=== PATIENT | female | born 1940 | race Caucasian/White ===

== ENCOUNTER 2019-03-21 08:42 | Emergency (ER) | payer MEDICARE, OTHER ==
[2019-03-21] MEDS ORDERED: cefTRIAXone 1 GM in SODIUM CHLORIDE 0.9% MINIBAG 100 ML IV STA (09:03)
[2019-03-21] MEDS ORDERED: AZITHROMYCIN INJ 500 MG in SODIUM CHLORIDE 0.9% 250 ML IV STA (09:03)
[2019-03-21 09:04] LABS: BASOPHILS % (AUTO) 0.6 %; HGB - HEMOGLOBIN 12.1 g/dL (12.0-16.0); LYMPHOCYTES # (AUTO) 1.9 10^3/uL (1.5-3.5); LYMPHOCYTES % (AUTO) 26.6 %; MEAN CORPUSCULAR HEMOGLOBIN 29.8 pg (27.0-31.0); MEAN CORPUSCULAR HGB CONC 30.1 g/dL (32.0-36.0); MEAN PLATELET VOLUME 9.5 fL (7.9-10.8); MONOCYTES # (AUTO) 0.9 10^3/uL (0.0-1.0); MONOCYTES % (AUTO) 12.2 %; NEUTROPHILS # (AUTO) 4.3 10^3/uL (1.5-6.6); NEUTROPHILS % (AUTO) 59.1 %; PLT - PLATELET COUNT 457 10^3/uL (130-450); RED BLOOD COUNT 4.06 10^6/uL (4.20-5.40); RED CELL DISTRIBUTION WIDTH 17.2 % (12.0-15.0); WHITE BLOOD COUNT 7.2 x10^3/uL (4.8-10.8)
--- NOTE | 2019-03-21 09:07 | ED Physician Documentation ---
History of Present Illness - Stated complaint Stated Complaint: SOA - Chief complaint Chief Complaint: Resp - Additonal information Additional information: This is an 78-year-old female denies past medical history who presents with shortness of breath. For the last week patient has had a cough, and shortness of breath when she walks. She is also had some swelling of her lower extremities. She did have an episode earlier in the week where she got nauseated and diaphoretic according to family was in the room. This past and patient did not come into the hospital. She this morning began having worsening shortness of breath, she also states that she has had some intermittent subjective fevers at home, and she is been coughing up thick white to pink sputum. She is concerned she might have a pneumonia. Her daughter brought her to the hospital in triage she was noted to have an oxygen sat of 44% on room air. She denies any Chest pain, denies cardiac history, no history of RI. She is a former smoker. She denies any history of blood clots. 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 HEENT: Tonsil/Adenoidectomy - Present Medications Home Medications: Ambulatory Orders Medication Instructions Recorded Confirmed No Known Home Medications 04/11/13 04/11/13 - Allergies Allergies/Adverse Reactions: Allergies Allergy/AdvReac Type Severity Reaction Status Date / Time No Known Drug Allergies Allergy Verified 04/11/13 23:57 - Living Situation Living Arrangement: reports: At home - Social History Does the pt smoke?: No Smoking Status: Former smoker Does the pt drink ETOH?: Yes Does the pt have substance abuse?: No - POLST Patient has POLST: No PD ED PE NORMAL - Vitals Vital signs reviewed: Yes - General General: Alert and oriented X 3, Other (Nonrebreather in place, patient Has incr eased work of breathing, but is able to speak in full sentences) - HEENT HEENT: PERRL - Neck Neck: Supple, no meningeal sign - Cardiac Cardiac: Other (Regular rate and rhythm) - Respiratory Respiratory: Other (Diffuse crackles, particularly on the right side. 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, No motor deficit, Normal speech - Psych Psych: Normal mood, Normal affect Results - Vitals Vitals: Vital Signs - 24 hr 03/21/19 03/21/19 03/21/19 08:53 09:04 09:05 Temperature 37.7 C H Heart Rate 95 90 92 Respiratory 24 27 H Rate Blood Pressure 228/104 H 213/91 H O2 Saturation 44 L 95 03/21/19 03/21/19 03/21/19 09:43 10:00 10:58 Temperature Heart Rate 90 82 80 Respiratory 30 H 24 26 H Rate Blood Pressure 194/76 H 191/86 H 186/87 H O2 Saturation 97 98 96 03/21/19 03/21/19 03/21/19 11:00 11:30 12:00 Temperature Heart Rate 85 91 89 Respiratory 19 22 27 H Rate Blood Pressure 186/88 H 184/102 H 191/86 H O2 Saturation 95 97 96 03/21/19 03/21/19 03/21/19 12:30 12:36 13:00 Temperature Heart Rate 89 87 94 Respiratory 25 H 35 H 24 Rate Blood Pressure 186/95 H 186/95 H 200/106 H O2 Saturation 95 95 95 03/21/19 03/21/19 03/21/19 13:19 13:30 14:00 Temperature 37.6 C H Heart Rate 104 H 95 88 Respiratory 24 22 Rate Blood Pressure 206/111 H 180/126 H O2 Saturation 97 96 Oxygen O2 Source BIPAP Oxygen Flow Rate 15 - EKG (time done) 8:48 Other comments: Other comments (Rate 101, rhythm sinus tachycardia. There is poor R wave progression. There is [address] elevation in V2 and V3, otherwise no ST elevation. There is Some baseline wander that obscures fine detailed evaluation.) 10:53 Other comments: Other comments (Rate 82, rhythm sinus, there is [address] elevation in V2, 0.[address] elevation in V3, no ST depression seen. There is some T wave flattening in aVL. Pattern is unchanged from prior. There is poor R wave progression) - Labs Labs: Laboratory Tests 03/21/19 03/21/19 03/21/19 08:55 08:55 08:55 WBC 7.2 RBC 4.06 L Hgb 12.1 Hct 40.2 MCV 99.0 MCH 29.8 MCHC 30.1 L RDW 17.2 H Plt Count 457 H MPV 9.5 Neut # (Auto) 4.3 Lymph # (Auto) 1.9 Towner # (Auto) 0.9 Eos # (Auto) 0.0 Baso # (Auto) 0.0 Absolute Nucleated RBC 0.07 Nucleated RBC % 1.0 VBG pH VBG pCO2 VBG pO2 VBG HCO3 VBG Total CO2 VBG O2 Saturation VBG Base Excess Sodium 140 Potassium 3.4 L Chloride 100 L Carbon Dioxide 30 Anion Gap 10.0 BUN 10 Creatinine 0.8 Estimated GFR (MDRD) 69 L Glucose 136 H Lactic Acid 2.8 H Calcium 9.1 Total Bilirubin 0.8 AST 34 ALT 31 Alkaline Phosphatase 105 Troponin I High Sens B-Natriuretic Peptide Total Protein 7.3 Albumin 3.8 Globulin 3.5 Albumin/Globulin Ratio 1.1 Lipase 37 03/21/19 03/21/19 03/21/19 08:55 08:55 08:55 WBC RBC Hgb Hct MCV MCH MCHC RDW Plt Count MPV Neut # (Auto) Lymph # (Auto) Towner # (Auto) Eos # (Auto) Baso # (Auto) Absolute Nucleated RBC Nucleated RBC % VBG pH 7.314 VBG pCO2 55.2 H VBG pO2 38.0 VBG HCO3 27.4 VBG Total CO2 29.1 H VBG O2 Saturation 63.8 VBG Base Excess 0.3 Sodium Potassium Chloride Carbon Dioxide Anion Gap BUN Creatinine Estimated GFR (MDRD) Glucose Lactic Acid Calcium Total Bilirubin AST ALT Alkaline Phosphatase Troponin I High Sens 186.8 H* B-Natriuretic Peptide 432 H Total Protein Albumin Globulin Albumin/Globulin Ratio Lipase 03/21/19 03/21/19 09:16 11:18 WBC RBC Hgb Hct MCV MCH MCHC RDW Plt Count MPV Neut # (Auto) Lymph # (Auto) Towner # (Auto) Eos # (Auto) Baso # (Auto) Absolute Nucleated RBC Nucleated RBC % VBG pH VBG pCO2 VBG pO2 VBG HCO3 VBG Total CO2 VBG O2 Saturation VBG Base Excess Sodium Potassium Chloride Carbon Dioxide Anion Gap BUN Creatinine Estimated GFR (MDRD) Glucose Lactic Acid 1.5 Calcium Total Bilirubin AST ALT Alkaline Phosphatase Troponin I High Sens 569.0 H* B-Natriuretic Peptide Total Protein Albumin Globulin Albumin/Globulin Ratio Lipase - Rads (name of study) CXR Radiology: Prelim report reviewed (Masslike consolidation of the right lung, potentially concerning for malignancy. Pulmonary edema with bilateral pleural effusions, mild cardiomegaly) CT PE study Radiology: Other (No pulmonary embolism or sign of right heart strain, there is dense airspace consolidation which may be due to infection though subtle malignancy is not excluded. Bilateral septal thickening which may be consistent with pulmonary edema, moderate right and small left pleural effusions, small pericardial effusion) PD MEDICAL DECISION MAKING - ED course Complexity details: considered differential (Pneumonia, pulmonary edema, heart failure, ACS, dysrhythmia, electrolyte abnormality, malignancy, pulmonary embolism) ED course: On arrival patient is having significant respiratory distress. Her oxygen saturation is 47% on room air, she is tachypneic, and hypertensive. She has crackles and reduced breath sounds in the bilateral bases. She is placed on nonrebreather and oxygen saturation improved into the 90s. Bedside pointing or ultrasound reveals B-lines, as well as a suggestion of a small pericardial effusion and some opacification in the lungs. Chest x-ray also shows consolidation which are concerning for mass versus pneumonia, and also interstitial edema suggestive of pulmonary edema. She was placed on BiPAP 8/4 and had significant improvement in her work of breathing. EKG shows poor R wave progression and slight elevation of the ST segments in V2 and V3, but not at criteria for ST elevation RI, and patient additionally has no chest pain. We have no past EKG for comparison. Her CBC is relatively unremarkable with only a slight thrombocytosis, her VBG shows mild hypercapnia at 55, and her electrolytes are unremarkable. She does have an elevated BNP at 432 consistent with cardiac dysfunction and her initial high-sensitivity troponin is 186. While this is elevated, it is an indeterminate range for ACS versus just heart strain. CT PE study was performed and shows no signs of pulmonary embolism, but does show consolidation the lungs which is dense and may in fact rib infection versus subtle malignancy. She is at risk for malignancy given her previous smoking history. She does have some pulmonary edema and a small pericardial effusion. She was started on ceftriaxone as well as azithromycin to cover for respiratory infection, though she is afebrile and has no elevated white count at this time. Repeat troponin is increasing at 569, repeat EKG is unchanged. She continues to be chest pain-free. I think this is most concerning for at non-ST elevation RI, given her overall clinical picture. She was given aspirin here. I consider starting heparin, however given her pericardial effusion and complicated picture I think that there are some risks in doing so and I attempted to contact cardiology at [facility] for the recommendations but after multiple pages I have still not heard back. At this time she appears to have acute hypoxemic respiratory failure, which may be multifactorial from heart failure, pneumonia, and potential malignancy. She is requiring BiPAP and when she was briefly transitioned to an Oxymizer she did not tolerate this - after around a half an hour needed to be put back on the BiPAP. Her blood pressure also increased again, and she was given nitroglycerin and started on a nitro drip with improvement, which again is most consistent with pulmonary edema. Dr. Pozo Is accepting provider at [facility]. Given she is on BiPAP she want to be transferred via air. Oxygen saturation was in the mid 90s with easy work of breathing at the time of transfer. She appears stable on BiPAP. Departure - Departure Disposition: 02 Transfer Acute Care Hosp Clinical Impression: Acute hypoxemic respiratory failure, Elevated troponin Heart failure Qualifiers: Heart failure type: unspecified Heart failure chronicity: acute Qualified Code(s): I50.9 - Heart failure, unspecified Pneumonia Qualifiers: Pneumonia type: due to unspecified organism Laterality: unspecified laterality Lung location: unspecified part of lung Qualified Code(s): J18.9 - Pneumonia, unspecified organism Discharge Date/Time: 03/21/19 14:00
[2019-03-21 09:09] LABS: VBG BASE EXCESS 0.3 mmol/L (-2 - +2); VBG PCO2 55.2 mmHg (41-51); VBG PH 7.314 (7.31-7.41); VBG TOTAL CO2 29.1 mmol/L (24-29)
--- NOTE | 2019-03-21 09:16 | XRAY Report ---
Reason: chest pain Procedure Date: 03/21/2019 Accession Number: [id number] / [id number] Procedure: XR - Chest 1 View X-Ray CPT Code: 92374 Final Report FULL RESULT: EXAM: CHEST RADIOGRAPHY EXAM DATE: 03/21/2019 09:03 AM. CLINICAL HISTORY: Chest pain. COMPARISON: None. TECHNIQUE: 1 view. FINDINGS: Lungs/Pleura: Right suprahilar masslike consolidation is seen. Coarse interstitial pulmonary opacities are noted with lower lung predominant consolidation bilaterally. Small bilateral pleural effusions are evident. No pneumothorax. Mediastinum: Heart size is mildly enlarged. Other: None. IMPRESSION: 1. Masslike consolidation of the right suprahilar lung is of unclear etiology, but malignancy is not excluded. 2. Coarse interstitial pulmonary opacities could reflect pulmonary edema or other interstitial process. 3. Small bilateral pleural effusions. 4. Mild cardiomegaly. RADIA
[2019-03-21 09:17] LABS: ALBUMIN 3.8 g/dL (3.2-5.5); ALBUMIN/GLOBULIN RATIO 1.1 (1.0-2.2); BILIRUBIN,TOTAL 0.8 mg/dL (0.2-1.0); CALCIUM 9.1 mg/dL (8.5-10.3); CREATININE 0.8 mg/dL (0.4-1.0); TOTAL PROTEIN 7.3 g/dL (6.7-8.2)
[2019-03-21] MEDS ORDERED: FUROSEMIDE 20 MG/2 ML VIAL IVP STA (09:30)
[2019-03-21] MEDS ORDERED: IOVERSOL 320 100 ML VIAL IVP ONE ×2 (09:37→10:06)
--- NOTE | 2019-03-21 10:30 | CT Report ---
Reason: PE study please, hypoxia, edema, ?lung mass Procedure Date: 03/21/2019 Accession Number: [id number] / [id number] Procedure: CT - ANGIO CHEST W/WO CPT Code: Final Report FULL RESULT: EXAM: CT ANGIOGRAM CHEST EXAM DATE: 03/21/2019 10:09 AM. CLINICAL HISTORY: PE study please, hypoxia, edema, ?lung mass. COMPARISON: CHEST 1 VIEW 03/21/2019 8:46 AM. TECHNIQUE: Routine helical imaging was performed through the chest in the pulmonary arterial phase. IV Contrast: OPTI 320 80ML. Reconstructions: Coronal 3-D MIP reconstructions.Sagittal and coronal. In accordance with CT protocol optimization, one or more of the following dose reduction techniques were utilized for this exam: automated exposure control, adjustment of mA and/or KV based on patient size, or use of iterative reconstructive technique. FINDINGS: Pulmonary Arteries: Diagnostic quality: Adequate through the segmental arteries. No evidence for acute or chronic pulmonary emboli. RV/LV is within normal limits. There is no interventricular septal bowing. There is no reflux of contrast material in the IVC. Lungs/Pleura: Moderate to severe upper lung predominant emphysema noted. Anterior right upper lobe dense airspace consolidation is seen of unclear etiology. No definite hyperenhancing suprahilar mass is seen within this consolidation and this may be secondary to pneumonia. Additional irregular shaped nodular foci of consolidation seen at the left upper lung measuring 9 mm (6/37), 13 mm (6/42), and 14 mm (6/54) respectively. Dense masslike airspace consolidation is also seen in the superior segment of the left lower lobe (09/03 37) measuring up to 3.8 cm. Also noted is nodular septal thickening in the right greater than left upper lung with appearance of reticulation. Septal thickening is also seen in the lower lungs bilaterally to a lesser extent compared to the right upper lobe. Moderate size right pleural effusion and small left pleural effusion noted. No pneumothorax. Mediastinum: Borderline cardiomegaly. Small pericardial effusion noted. Coronary artery calcifications noted. Prominent mediastinal lymph nodes are possibly reactive. For example, 1.2 cm short axis right lower paratracheal lymph node (5/58) is noted. Thoracic Aorta: Limited evaluation secondary to lack of adequate opacification. No aneurysms. Severe diffuse calcified atherosclerotic plaque seen in the thoracic aorta. Upper Abdomen: Hepatic lobular contour could reflect underlying cirrhosis. No acute abnormality seen. No ascites is evident. Other: Degenerative changes in the spine. IMPRESSION: 1. No pulmonary emboli bilaterally. No sign of right heart strain. 2. Dense airspace consolidation seen extending from the right suprahilar lung into the anterior aspect of the right upper lobe. Since no underlying hyperenhancing mass is seen within the consolidation, this could reflect infection, although, subtle malignancy is not entirely excluded. Similarly, 3.8 cm dense masslike consolidation of the superior segment of the left lower lobe with irregular borders is noted, also of unclear etiology, likely infection versus malignancy. 3. Additional Discrete left upper lobe nodularity is seen with the largest nodule measuring 14 mm as listed above. Again etiology is unclear and could reflect infection versus malignancy. 4. Bilateral septal thickening is noted is noted, most conspicuous in the right upper lobe reflecting interstitial process such as pulmonary edema, infection, or lymphangitic carcinomatosis which could have this appearance in the context of malignancy. 5. Given extent of findings, short interval follow-up imaging is recommended to assess for evolution or resolution. 6. Moderate right and small left base pleural effusion noted. 7. Small pericardial effusion. 8. Prominent mediastinal lymph nodes are seen. RADIA
[2019-03-21] MEDS ORDERED: ASPIRIN CHEW 81 MG TABLET PO STA (12:09)
[2019-03-21] MEDS ORDERED: NITROGLYCERIN SL 0.4 MG TABLET SL STA (13:39)
[2019-03-21] MEDS ORDERED: NITROGLYCERIN SL 0.4 MG TABLET SL ONE (13:40)
[2019-03-21 15:15] VITALS: BP 180/126
== END 2019-03-21 14:00 | disposition short-term general hospital (02) ==
LOC: ED 08:42
DX: J96.01 Acute respiratory failure with hypoxia (principal); I31.3 Pericardial effusion (noninflammatory); J90 Pleural effusion, not elsewhere classified; J18.9 Pneumonia, unspecified organism; I11.0 Hypertensive heart disease with heart failure; I50.1 Left ventricular failure, unspecified; R79.89 Other specified abnormal findings of blood chemistry; Z87.891 Personal history of nicotine dependence
CPT/HCPCS: 36415; 71045; 71275; 80053; 82803; 83605; 83690; 83880; 84484; 85025; 87040; 93005; 94660; 96365; 96368; 96375; 99284; 99285; A9270; Q9967

== ENCOUNTER 2021-05-04 08:11 | Outpatient (CLI) | payer MEDICARE, OTHER | END 2021-05-04 08:12 | disposition E | LOC: EMS 08:11 | DX: I46.9 Cardiac arrest, cause unspecified (principal) ==